=== PATIENT | male | born 1980 | race Caucasian/White ===

== ENCOUNTER 2017-06-29 18:06 | Emergency (ER) | payer OTHER, MEDICAID ==
--- NOTE | 2017-06-29 18:14 | EDPHY ---
H & P Time Seen by Provider: 06/29/17 18:11 HPI/ROS: CHIEF COMPLAINT: Medical clearance for fdc. HISTORY OF PRESENT ILLNESS: This patient is an intoxicated 36 y/o male arriving with police escort for medical clearance for fdc. He admits to marijuana and alcohol use today. He is intoxicated. Able to walk with a steady gait. No vomiting. No recent illness or trauma. He has no further complaints. REVIEW OF SYSTEMS: unable to reliably obtain b/c uncooperative Past Medical/Surgical History: Patient declined to answer. Social History: Transient. Lives in [place]. Heavy alcohol use. Physical Exam: General Appearance: alert, slurred speech, smells of alcohol Eyes: Pupils equal and round, conjunctival pallor injection ENT, Mouth: Mucous membranes moist Neck: Normal inspection Respiratory: Lungs are clear to auscultation Cardiovascular: Regular rate and rhythm Gastrointestinal: Abdomen is soft and non-tender Neurological: Slurred speech, nonfocal, able to walk with steady gait Skin: Warm and dry Extremities: normal inspection Psychiatric: uncooperative Constitutional: Initial Vital Signs Temperature (C) 36.5 C 06/29/17 18:06 Heart Rate 72 06/29/17 18:06 Respiratory Rate 16 06/29/17 18:06 Blood Pressure 130/77 H 06/29/17 18:06 O2 Sat (%) 94 06/29/17 18:06 O2 Delivery Mode Room Air Allergies/Adverse Reactions: Unable to Assess Allergy (Unverified 06/29/17 18:13) Home Medications: Medication Instructions Recorded Unobtainable 06/29/17 Medical Decision Making ED Course/Re-evaluation: Intoxicated 36 y/o male presents for medical clearance for fdc. Exam reveals slurred speech, he is able to walk with steady gait. Lungs clear to auscultation. Exam otherwise unremarkable. Plan to d/c to fdc in good condition. Departure - Departure Disposition: Law Enforcement/Court/Long-Term Clinical Impression: Alcoholic intoxication Qualifiers: Complication of substance-induced condition: uncomplicated Qualified Code(s): F10.920 - Alcohol use, unspecified with intoxication, uncomplicated Condition: Good Instructions: Alcohol Intoxication (ED) Referrals: [facility] [Outside] - As per Instructions Report Scribed for: Vanessa Smiley Report Scribed by: Kylah Velasquez Date of Report: 06/29/17 Time of Report: 18:15 Physician Review and Approval Statement: 06/29/17 18:15 Portions of this note were transcribed by a mobile paramedical examiner. I personally performed a history, physical exam, medical decision making, and confirmed accuracy of information the transcribed note.
[2017-06-29 18:15] VITALS: RESP 16
[2017-06-29 19:18] VITALS: BP 141/74; PULSE 74; TEMP 97.9; O2SAT 96
== END 2017-06-29 19:26 ==
DX: F10.920 Alcohol use, unspecified with intoxication, uncomplicated (principal)

== ENCOUNTER 2017-07-28 22:15 | Emergency (ER) | payer OTHER, MEDICAID ==
[2017-07-28] MEDS ORDERED: NS 1,000 ML IV ONE (22:16)
[2017-07-28] MEDS ORDERED: ONDANSETRON 4 MG/2 ML VIAL IVP ONE (22:16)
[2017-07-28 22:20] VITALS: RESP 16; TEMP 97.5
--- NOTE | 2017-07-28 22:20 | EDPHY ---
H & P HPI/ROS: HPI CHIEF COMPLAINT: Alcohol Intoxication HISTORY OF PRESENT ILLNESS: This patient is a 36-year-old male, he presents emergency room by EMS for acute alcohol intoxication. According to EMS he was brought to [facility] however shortly after arriving where he had to be very lethargic and unable to ambulate vomited on himself. EMS was called to transfer him here to the emergency room. They report no trauma. No reported drugs. Upon arrival to the emergency room the patient is very lethargic. Smells of alcohol. Past Medical History: Alcoholism, daily alcohol use Past Surgical History: Denies significant surgical history Social History: Homeless, daily alcohol use. Family History: Noncontributory ROS REVIEW OF SYSTEMS: Limited due to patient's acute alcohol intoxication. Exam Constitutional Intoxicated, triage nursing summary reviewed, vital signs reviewed, Sleepy, smells of alcohol Eyes normal conjunctivae and sclera, horizontal beating nystagmus consistent acute alcohol intoxication, otherwise pupils equal and react to light HENT normal inspection, atraumatic, moist mucus membranes, no epistaxis, neck supple/ no meningismus, no raccoon eyes. Respiratory clear to auscultation bilaterally, normal breath sounds, no respiratory distress, no wheezing. Cardiovascular rate normal, regular rhythm, no murmur, no edema, distal pulses normal. Gastrointestinal soft, non-tender, no rebound, no guarding, normal bowel sounds, no distension, no pulsatile mass. Genitourinary no CVA tenderness. Musculoskeletal no midline vertebral tenderness, full range of motion, no calf swelling, no tenderness of extremities, no meningismus, good pulses, neurovascularly intact. Skin pink, warm, & dry, no rash, skin atraumatic. Neurologic sleepy, intoxicated with alcohol,, alert and oriented x 3, AAOx3, moves all 4 extremities equally, motor intact, sensory intact, CN II-XII intact , , normal vision, normal speech. Psychiatric normal mood/affect. Heme/Lymph/Immune no lymphadenopathy. Differential Diagnosis: Includes but is not limited to in a particular order acute alcohol intoxication, alcohol abuse, dehydration, electrolyte abnormality , nausea vomiting from acute alcohol intoxication Medical Decision Making: Plan for this patient IV establishment check basic blood work, check electrolytes she, check glucose, check serum alcohol level, gentle IV hydration. Re-evaluation: 2322: Serum alcohol 372. Source: Patient, EMS - Medical/Surgical History Other PMH: Pt refusing to answer - Social History Smoking Status: Unknown if ever smoked Constitutional: Initial Vital Signs Temperature (C) 36.4 C 07/28/17 22:17 Heart Rate 65 07/28/17 22:17 Respiratory Rate 16 07/28/17 22:17 Blood Pressure 129/80 H 07/28/17 22:17 O2 Sat (%) 91 L 07/28/17 22:17 O2 Delivery Mode Room Air Allergies/Adverse Reactions: Unable to Assess Allergy (Unverified 06/29/17 18:13) Home Medications: Medication Instructions Recorded Unobtainable 06/29/17 Medical Decision Making - Data Points Laboratory Results: Laboratory Results 07/28/17 22:30 07/28/17 22:30 07/28/17 07/28/17 22:30 22:30 WBC 8.43 10^3/uL 10^3/uL (3.80-9.50) RBC 5.10 10^6/uL 10^6/uL (4.40-6.38) Hgb 15.7 g/dL g/dL (13.7-17.5) Hct 44.3 % % (40.0-51.0) MCV 86.9 fL fL (81.5-99.8) MCH 30.8 pg pg (27.9-34.1) MCHC 35.4 g/dL g/dL (32.4-36.7) RDW 12.7 % % (11.5-15.2) Plt Count 257 10^3/uL 10^3/uL (150-400) MPV 9.2 fL fL (8.7-11.7) Neut % (Auto) 45.7 % % (39.3-74.2) Lymph % (Auto) 42.5 % % (15.0-45.0) Banner % (Auto) 8.9 % % (4.5-13.0) Eos % (Auto) 2.1 % % (0.6-7.6) Baso % (Auto) 0.4 % % (0.3-1.7) Nucleat RBC Rel Count 0.0 % % (0.0-0.2) Absolute Neuts (auto) 3.86 10^3/uL 10^3/uL (1.70-6.50) Absolute Lymphs (auto) 3.58 10^3/uL H 10^3/uL (1.00-3.00) Absolute Monos (auto) 0.75 10^3/uL 10^3/uL (0.30-0.80) Absolute Eos (auto) 0.18 10^3/uL 10^3/uL (0.03-0.40) Absolute Basos (auto) 0.03 10^3/uL 10^3/uL (0.02-0.10) Absolute Nucleated RBC 0.00 10^3/uL 10^3/uL (0-0.01) Immature Gran % 0.4 % % (0.0-1.1) Immature Gran # 0.03 10^3/uL 10^3/uL (0.00-0.10) Sodium 146 mEq/L H mEq/L (134-144) Potassium 3.7 mEq/L mEq/L (3.5-5.2) Chloride 107 mEq/L mEq/L (97-110) Carbon Dioxide 22 mEq/l mEq/l (22-31) Anion Gap 17 mEq/L H mEq/L (8-16) BUN 13 mg/dL mg/dL (7-23) Creatinine 0.9 mg/dL mg/dL (0.7-1.3) Estimated GFR > 60 Glucose 95 mg/dL mg/dL (70-100) Calcium 8.8 mg/dL mg/dL (8.5-10.4) Ethyl Alcohol 372 mg/dL H mg/dL (0-10) Medications Given: Discontinued Medications Sodium Chloride (Ns) 1,000 mls @ 0 mls/hr IV EDNOW ONE; Wide Open PRN Reason: Protocol Stop: 07/28/17 22:17 Last Admin: 07/28/17 22:38 Dose: 1,000 mls Ondansetron HCl (Zofran) 4 mg IVP EDNOW ONE Stop: 07/28/17 22:17 Last Admin: 07/28/17 22:38 Dose: 4 mg
[2017-07-28 22:42] LABS: PLATELET COUNT 257 10^3/uL (150-400)
[2017-07-29 02:24] VITALS: O2SAT 93
[2017-07-29 02:25] VITALS: BP 120/60; PULSE 14
== END 2017-07-29 02:25 | disposition home or self-care (01) ==
LOC: EDUNIT#
DX: F10.129 Alcohol abuse with intoxication, unspecified (principal); E86.9 Volume depletion, unspecified
CPT/HCPCS: 96374; 99284; J2405; G0480